=== PATIENT | female | born 1960 | race Caucasian/White ===

== ENCOUNTER 2019-06-21 09:50 | Emergency (ER) | payer MEDICAID, OTHER ==
[~2019-06-21] VITALS: Ht 162.6 cm; Wt 81.8 kg
[~2019-06-21 09:50] MED LIST: INSLAN SQ
[2019-06-21 10:11] LABS: GLUCOSE,POINT OF CARE 476 MG/DL (70-110)
[2019-06-21] MEDS ORDERED: INSULIN REGULAR, HUMAN 100 UNITS/ML IVP ONE (10:15)
[2019-06-21] MEDS ORDERED: SODIUM CHLORIDE 0.9% 1,000 ML IV ONE ×2 (10:15→11:45)
[2019-06-21 11:03] LABS: BASOPHILS % (AUTO) 0.4 % (0.0-2.0); EOSINOPHILS % (AUTO) 0.7 % (1.0-6.0); HEMATOCRIT 37.3 % (36-46); HEMOGLOBIN 12.2 g/dL (12.0-16.0); LYMPHOCYTES # (AUTO) 1.4 K/uL (1.0-4.8); MEAN CORPUSCULAR HEMOGLOBIN 29.9 pg (26.0-34.0); MEAN CORPUSCULAR HGB CONC 32.8 G/dL (31.0-37.0); MEAN CORPUSCULAR VOLUME 91 fL (80-100); MONOCYTES # (AUTO) 0.6 K/uL (0.1-1.0); MONOCYTES % (AUTO) 8.8 % (2.0-9.0); NEUTROPHILS # (AUTO) 4.9 K/uL (1.8-7.7); NEUTROPHILS % (AUTO) 70.1 % (40.0-70.0); PLATELET COUNT (AUTO) 235 K/uL (150-450); RED BLOOD CELL COUNT(AUTO) 4.09 MIL/uL (4.00-5.20); RED CELL DISTRIBUTION WIDTH 13.7 % (11.5-14.5)
[2019-06-21 11:11] LABS: APPEARANCE,URINE CLEAR (CLEAR); BILIRUBIN,URINE NEGATIVE (NEGATIVE); GLUCOSE, URINE (UA) >=1000 mg/dL (NEGATIVE); KETONES,URINE 40 mg/dL (NEGATIVE); LEUKOCYTE ESTERASE ,URINE NEGATIVE (NEGATIVE); NITRATE,URINE NEGATIVE (NEGATIVE); OCCULT BLOOD,URINE MODERATE (NEGATIVE); PH,URINE 5.5 (5.0-8.0); PROTEIN,URINE NEGATIVE (NEGATIVE); UROBILINOGEN,URINE 0.2 mg/dL (<=1.0)
[2019-06-21 11:19] LABS: ALANINE AMINOTRANSFERASE 13 U/L (12-78); ALBUMIN 3.2 g/dL (3.4-5.0); ALKALINE PHOSPHATASE 149 U/L (46-116); ANION GAP 15 mmol/L (8-16); ASPARTATE AMINOTRANSFERASE 13 U/L (15-37); BACTERIA,URINE None Seen /HPF (None Seen); BILIRUBIN,TOTAL 0.6 mg/dL (0.1-1.0); CALCIUM, TOTAL 9.2 mg/dL (8.8-10.5); CARBON DIOXIDE 22 mmol/L (22-29); CHLORIDE 92 mmol/L (98-107); CREATININE 0.88 mg/dL (0.60-1.30); GLOMERULAR FILTR. RATE CALC > 60 mL/min (>60); POTASSIUM 3.7 mmol/L (3.5-5.1); SODIUM SERUM 129 mmol/L (136-145); TOTAL PROTEIN, SERUM 8.1 g/dL (6.4-8.2); UREA NITROGEN, BLOOD 19 mg/dL (7-18)
[2019-06-21 11:20] LABS: SQUAMOUS EPITHELIAL CELL,UR Few /LPF (None Seen)
[2019-06-21 11:21] LABS: GLUCOSE,RANDOM 487 mg/dL (70-110)
[2019-06-21 11:52] LABS: GLUCOSE,POINT OF CARE 301 MG/DL (70-110)
[2019-06-21 13:20] VITALS: BP 145/85
== END 2019-06-21 14:11 | disposition home or self-care (01) ==
LOC: EMS 09:56
DX: E11.65 Type 2 diabetes mellitus with hyperglycemia (principal); I10 Essential (primary) hypertension; F32.9 Major depressive disorder, single episode, unspecified; Z79.4 Long term (current) use of insulin
CPT/HCPCS: 36415; 80053; 81001; 82948; 82962; 85025; 96361; 96374; 99283; J1815; J7030

== ENCOUNTER 2019-10-23 23:45 | Emergency (ER) | payer OTHER ==
[~2019-10-23] VITALS: Ht 162.6 cm; Wt 81.8 kg
[~2019-10-23 23:45] MED LIST changes: +LISI-618 PO; +SIMV-43 PO
[2019-10-24 01:29] LABS: BASOPHILS % (AUTO) 0.9 % (0.0-2.0); EOSINOPHILS % (AUTO) 2.4 % (1.0-6.0); HEMATOCRIT 37.1 % (36-46); HEMOGLOBIN 12.5 g/dL (12.0-16.0); LYMPHOCYTES # (AUTO) 2.2 K/uL (1.0-4.8); LYMPHOCYTES % (AUTO) 38.1 % (22.0-44.0); MEAN CORPUSCULAR HEMOGLOBIN 30.3 pg (26.0-34.0); MEAN CORPUSCULAR HGB CONC 33.8 G/dL (31.0-37.0); MEAN CORPUSCULAR VOLUME 90 fL (80-100); MONOCYTES # (AUTO) 0.5 K/uL (0.1-1.0); NEUTROPHILS # (AUTO) 2.9 K/uL (1.8-7.7); NEUTROPHILS % (AUTO) 50.6 % (40.0-70.0); PLATELET COUNT (AUTO) 240 K/uL (150-450); RED BLOOD CELL COUNT(AUTO) 4.13 MIL/uL (4.00-5.20); RED CELL DISTRIBUTION WIDTH 13.1 % (11.5-14.5)
[2019-10-24 01:39] LABS: APPEARANCE,URINE CLEAR (CLEAR); BILIRUBIN,URINE NEGATIVE (NEGATIVE); GLUCOSE, URINE (UA) >=1000 mg/dL (NEGATIVE); KETONES,URINE TRACE mg/dL (NEGATIVE); LEUKOCYTE ESTERASE ,URINE NEGATIVE (NEGATIVE); NITRATE,URINE NEGATIVE (NEGATIVE); OCCULT BLOOD,URINE MODERATE (NEGATIVE); PROTEIN,URINE NEGATIVE (NEGATIVE); UROBILINOGEN,URINE 0.2 mg/dL (<=1.0)
[2019-10-24 01:51] LABS: ALANINE AMINOTRANSFERASE 21 U/L (12-78); ALBUMIN 3.4 g/dL (3.4-5.0); ALKALINE PHOSPHATASE 282 U/L (46-116); ANION GAP 8 mmol/L (8-16); ASPARTATE AMINOTRANSFERASE 12 U/L (15-37); BILIRUBIN,TOTAL 0.3 mg/dL (0.1-1.0); CARBON DIOXIDE 29 mmol/L (22-29); CHLORIDE 93 mmol/L (98-107); CREATININE 0.93 mg/dL (0.60-1.30); GLOMERULAR FILTR. RATE CALC > 60 mL/min (>60); HCG,QUANTITATIVE 1 mIU/mL (0-6); SODIUM SERUM 130 mmol/L (136-145); TOTAL PROTEIN, SERUM 7.6 g/dL (6.4-8.2); UREA NITROGEN, BLOOD 24 mg/dL (7-18)
[2019-10-24 01:52] LABS: BACTERIA,URINE None Seen /HPF (None Seen); SQUAMOUS EPITHELIAL CELL,UR Moderate /LPF (None Seen); YEAST,URINE Rare /HPF (None Seen)
[2019-10-24 01:59] LABS: GLUCOSE,RANDOM 494 mg/dL (70-110)
[2019-10-24 02:07] VITALS: BP 156/81
[2019-10-24 02:17] LABS: GLUCOSE,POINT OF CARE 450 MG/DL (70-110)
== END 2019-10-24 04:10 | disposition left against medical advice (07) ==
LOC: EMS 23:46
DX: R10.9 Unspecified abdominal pain (principal); Z53.21 Procedure and treatment not carried out due to patient leaving prior to being seen by health care provider

== ENCOUNTER 2020-10-30 17:34 | Emergency (ER) | payer OTHER ==
[~2020-10-30] VITALS: Ht 162.6 cm; Wt 83.6 kg
[2020-10-30 17:41] VITALS: BP 171/82
== END 2020-10-30 18:47 | disposition home or self-care (01) ==
LOC: EMS 17:35
DX: E11.65 Type 2 diabetes mellitus with hyperglycemia (principal); F32.9 Major depressive disorder, single episode, unspecified; I10 Essential (primary) hypertension; Z79.4 Long term (current) use of insulin
CPT/HCPCS: Z7502

== ENCOUNTER 2022-10-17 22:15 | Emergency (ER) | payer OTHER ==
[~2022-10-17] VITALS: Ht 162.6 cm; Wt 100.0 kg
[~2022-10-17 22:15] MED LIST changes: -LISI-618 PO; +LISI20TA24 PO
[2022-10-17 22:22] VITALS: BP 124/65
== END 2022-10-17 22:38 | disposition left against medical advice (07) ==
LOC: EMS 22:15
DX: R51.9 Headache, unspecified (principal); R42 Dizziness and giddiness; Z53.21 Procedure and treatment not carried out due to patient leaving prior to being seen by health care provider

== ENCOUNTER 2022-11-22 18:33 | Emergency (ER) | payer OTHER ==
[~2022-11-22] VITALS: Ht 160 cm; Wt 65.9 kg
[2022-11-22] MEDS ORDERED: GABA-533 PO (18:57)
[2022-11-22] MEDS ORDERED: ATOR20TA65 PO (18:57)
[2022-11-22] MEDS ORDERED: CITA-108 PO (18:57)
[2022-11-22] MEDS ORDERED: DULA0.75 SQ (18:57)
[2022-11-22] MEDS ORDERED: ACETAMINOPHEN 325 MG TABLET PO ONE (19:15)
[2022-11-22 22:13] VITALS: BP 148/86
== END 2022-11-22 22:59 | disposition home or self-care (01) ==
LOC: EMS 18:34
DX: S93.401A Sprain of unspecified ligament of right ankle, initial encounter (principal); F32.A Depression, unspecified; E11.9 Type 2 diabetes mellitus without complications; I10 Essential (primary) hypertension; X58.XXXA Exposure to other specified factors, initial encounter; Y93.E5 Activity, floor mopping and cleaning; Y92.89 Other specified places as the place of occurrence of the external cause; Y99.8 Other external cause status
CPT/HCPCS: 82962; 99283

== ENCOUNTER 2023-03-20 22:04 | Emergency (ER) | payer OTHER ==
[~2023-03-20] VITALS: Ht 162.6 cm; Wt 85.0 kg
[~2023-03-20 22:04] MED LIST changes: +ATOR20TA65 PO; +CITA-108 PO; +DULA0.75 SQ; +GABA-533 PO; -INSLAN SQ; -LISI20TA24 PO; -SIMV-43 PO
[2023-03-20 22:26] LABS: GLUCOMETER DEV NAME(LOC) ERT.5; GLUCOSE,POINT OF CARE 483 MG/DL (70-110)
[2023-03-20] MEDS ORDERED: CYCLOBENZAPRINE HCL 10 MG TABLET PO ONE (22:45)
[2023-03-20] MEDS ORDERED: LIDOCAINE 5% TRANSDERMAL PATCH TD ONE (22:45)
[2023-03-20] MEDS ORDERED: KETOROLAC TROMETHAMINE 30 MG/ML VIAL IVP ONE (22:45)
[2023-03-20] MEDS ORDERED: SODIUM CHLORIDE 0.9% 1,000 ML IV ONE (22:45)
[2023-03-20 23:07] LABS: CALCIUM, TOTAL 9.2 mg/dL (8.8-10.5); CREATININE 1.13 mg/dL (0.60-1.30); POTASSIUM 4.1 mmol/L (3.5-5.1)
[2023-03-20] MEDS ORDERED: INSULIN REGULAR, HUMAN 100 UNITS/ML IVP ONE (23:30)
[2023-03-21 00:26] LABS: GLUCOMETER DEV NAME(LOC) ER.6; GLUCOSE,POINT OF CARE 324 MG/DL (70-110)
[2023-03-21 00:26] LABS: GLUCOMETER DEV NAME(LOC) ER.6; GLUCOSE,POINT OF CARE 432 MG/DL (70-110)
[2023-03-21] MEDS ORDERED: IBUP-1492 PO (00:27)
[2023-03-21] MEDS ORDERED: LIDO700A15 TP (00:27)
[2023-03-21] MEDS ORDERED: CYCL-448 PO (00:27)
[2023-03-21 00:54] VITALS: BP 128/77
== END 2023-03-21 03:00 | disposition home or self-care (01) ==
LOC: EMS 22:04
DX: M54.50 Low back pain, unspecified (principal); E11.65 Type 2 diabetes mellitus with hyperglycemia; F32.A Depression, unspecified; I10 Essential (primary) hypertension
CPT/HCPCS: 99284; 96374; 96361; 96375; 80048; 36415; 82962; J1815; J1885; J7030